=== PATIENT | female | born 1965 | race African-American/Black ===

== ENCOUNTER 2024-07-25 05:21 | Inpatient (IN) | payer OTHER ==
[~2024-07-25] VITALS: Ht 157.5 cm; Wt 78.0 kg
[2024-07-25] MEDS ORDERED: HYDRALAZINE 20MG/ML VIAL IV ONE (05:45)
[2024-07-25 06:08] LABS: BASOPHILS % 0.7 % (0.0-2.0); EOSINOPHILS % 7.7 % (0.0-5.0); HEMATOCRIT. 46.2 % (36.0-48.0); HEMOGLOBIN. 15.3 g/dL (12.0-16.0); LYMPHOCYTES % 21.4 % (20.0-50.0); MEAN CORPUSCULAR HEMOGLOBIN 29.1 pg (28.0-32.0); MEAN CORPUSCULAR HGB CONC 33.1 g/dL (31.0-37.0); MEAN CORPUSCULAR VOLUME 87.8 fL (81.0-99.0); MEAN PLATELET VOLUME 8.2 fl (7.4-10.4); MONOCYTES % 6.3 % (2.0-8.0); NEUTROPHILS % 63.9 % (40.0-76.0); PLATELET 264 x1000/uL (130-400); RED BLOOD CELL COUNT 5.26 mill/uL (4.2-5.4); RED CELL DISTRIBUTION WIDTH 14.2 % (11.6-14.6); WHITE BLOOD COUNT 13.4 x1000/uL (4.5-11.0)
[2024-07-25 06:15] LABS: CHLORIDE 103 mEq/L (98-107); POTASSIUM 3.1 mEq/L (3.5-5.1); SODIUM 139 mEq/L (136-145)
[2024-07-25 06:16] LABS: CALCIUM 10.3 mg/dL (8.7-10.4); CARBON DIOXIDE 21 mEq/L (21-32)
[2024-07-25 06:21] LABS: GLUCOSE 222 mg/dL (70-105); UREA NITROGEN BLOOD 15 mg/dL (9-23)
[2024-07-25] MEDS: HYDRALAZINE 20MG/ML VIAL IV NR (06:25)
[2024-07-25 07:45] LABS: TROPONIN I HIGH SENSITIVITY 4 ng/L (3.0-34)
[2024-07-25] MEDS ORDERED: ONDANSETRON HCL 4MG/2ML INJ IV PRN (08:45)
[2024-07-25] MEDS: SODIUM CHLORIDE 0.45% 1,000 ML IV SCH (08:45)
[2024-07-25] MEDS ORDERED: ACETAMINOPHEN 325MG TABLET PO PRN (08:45)
[2024-07-25] MEDS ORDERED: MAGNESIUM/ALUMINUM HYDROXIDE/SIMETHICONE 30ML UDC PO PRN (08:45)
[2024-07-25] MEDS ORDERED: IPRATROPIUM/ALBUTEROL 0.5-3(2.5)MG/3ML NEB HHN PRN (08:45)
[2024-07-25] MEDS ORDERED: DOCUSATE SODIUM 100MG CAPSULE PO PRN (08:45)
[2024-07-25] MEDS ORDERED: DEXTROSE 50% WATER 50ML SYRINGE IV PRN (08:45)
[2024-07-25] MEDS: SODIUM CHLORIDE 0.9% 1,000 ML IV ONE (08:56)
[2024-07-25] MEDS: BLOOD SUGAR DIAGNOSTIC STRIP TEST SCH (09:00)
[2024-07-25 09:44] LABS: PHOSPHORUS 3.2 mg/dL (2.5-4.9)
[2024-07-25 09:59] VITALS: PULSE 128; RESP 22
[2024-07-25] MEDS: IPRATROPIUM BROMIDE (0.02%) 0.5MG/2.5ML NEB HHN SCH (09:59)
[2024-07-25 10:40] LABS: LACTIC ACID 2.8 mmol/L (0.4-2.0)
[2024-07-25] MEDS: INSULIN LISPRO 100 UNITS/ML SUBCUT SCH (11:07)
[2024-07-25] MEDS: ENOXAPARIN 40MG/0.4ML SYR SUBCUT SCH (11:08)
[2024-07-25] MEDS: METHYLPREDNISOLONE SOD SUCC 40MG/ML (ACT-O-VIAL) IV SCH (11:09)
[2024-07-25] MEDS: ASCORBIC ACID 500 MG TABLET PO SCH (11:09)
[2024-07-25] MEDS: ZINC SULFATE 220 MG ( 50 ) CAPSULE PO SCH (11:09)
[2024-07-25] MEDS: HYDROCHLOROTHIAZIDE 25MG TABLET PO SCH (11:09)
[2024-07-25] MEDS: AZITHROMYCIN 500MG/250ML 250 ML IV SCH (11:10)
[2024-07-25] MEDS: POTASSIUM CHLORIDE 20MEQ TABLET SR PO NR (11:10)
[2024-07-25] MEDS: LOSARTAN 50 MG TABLET PO SCH (11:10)
[2024-07-25] MEDS: CEFTRIAXONE 1GM/50ML 50 ML IV SCH (11:10)
[2024-07-25 11:48] LABS: POTASSIUM 3.4 mEq/L (3.5-5.1)
[2024-07-25 14:55] VITALS: PULSE 125; RESP 20
[2024-07-25] MEDS: ACETYLCYSTEINE 200MG/ML 20% VIAL 4ML INH SCH (14:55)
[2024-07-25 16:47] LABS: CREATINE KINASE MB FRACTION 1.4 ng/mL (0.5-3.6)
[2024-07-25] MEDS ORDERED: MAGNESIUM 2 G PREMIX 50 ML IV NR (18:30)
[2024-07-25] MEDS: MONTELUKAST SODIUM 10MG TABLET PO SCH (18:43)
[2024-07-25 21:30] VITALS: BP 171/71; PULSE 109; RESP 19; TEMP 37.6412
[2024-07-25] MEDS: ATORVASTATIN CALCIUM 40MG TABLET PO SCH (21:55)
[2024-07-25] MEDS: DILTIAZEM HCL 60MG TABLET PO SCH (21:56)
[2024-07-25] MEDS: FAMOTIDINE 20MG TABLET PO SCH (21:56)
[2024-07-25] MEDS: HYDRALAZINE 20MG/ML VIAL IV PRN (21:57)
[2024-07-25] MEDS: MAGNESIUM 2 G PREMIX 50 ML IV NR (21:59)
[2024-07-26] VITALS (7 sets, daily range): BP systolic 126–162; BP diastolic 56–88; PULSE 92–123; RESP 18–20; TEMP 36.3918–36.78072; O2SAT 96–100
[2024-07-26 00:09] LABS: CREATINE KINASE MB FRACTION 1.4 ng/mL (0.5-3.6)
[2024-07-26] MEDS ORDERED: HYDR12.54 MT (00:38)
[2024-07-26] MEDS ORDERED: LOSA25TA26 MT (00:38)
[2024-07-26] MEDS ORDERED: LIP40 PO (00:38)
[2024-07-26 06:51] LABS: CARBON DIOXIDE 23 mEq/L (21-32); CHLORIDE 103 mEq/L (98-107); POTASSIUM 4.2 mEq/L (3.5-5.1); SODIUM 136 mEq/L (136-145)
[2024-07-26 06:52] LABS: BASOPHILS % 0.2 % (0.0-2.0); CALCIUM 10.4 mg/dL (8.7-10.4); DIFFERENTIAL COMMENT 0; EOSINOPHILS % 0.1 % (0.0-5.0); HEMATOCRIT. 46.4 % (36.0-48.0); HEMOGLOBIN. 14.9 g/dL (12.0-16.0); LYMPHOCYTES % 9.6 % (20.0-50.0); MEAN CORPUSCULAR VOLUME 87.3 fL (81.0-99.0); MEAN PLATELET VOLUME 8.9 fl (7.4-10.4); NEUTROPHILS % 84.1 % (40.0-76.0); PLATELET 293 x1000/uL (130-400); RED BLOOD CELL COUNT 5.32 mill/uL (4.2-5.4); RED CELL DISTRIBUTION WIDTH 14.8 % (11.6-14.6); WHITE BLOOD COUNT 13.8 x1000/uL (4.5-11.0)
[2024-07-26 06:54] LABS: TRIGLYCERIDE 49 mg/dL (0-150)
[2024-07-26 06:57] LABS: CREATININE 0.9 mg/dL (0.6-1.0); GLUCOSE 163 mg/dL (70-105); UREA NITROGEN BLOOD 11 mg/dL (9-23)
[2024-07-26 06:58] LABS: ALANINE AMINOTRANSFERASE 19 IU/L (10-49); ALBUMIN 4.4 g/dL (3.2-4.8); ASPARTATE AMINOTRANSFERASE 20 IU/L (<34); LDL CHOLESTEROL 93 mg/dL (5-100)
[2024-07-26 06:59] LABS: BILIRUBIN DIRECT 0.3 mg/dL (<=3.0); BILIRUBIN TOTAL 1.2 mg/dL (0.1-1.0); CHOLESTEROL 167 mg/dL (<200); HDL CHOLESTEROL 60 mg/dL (>65); PROTEIN TOTAL 7.4 g/dL (6.0-8.3); T4 FREE 1.62 ng/dL (0.89-1.76); THYROID STIMULATING HORMONE 0.26 uIU/mL (0.55-4.78)
[2024-07-26] MEDS ORDERED: FLUT12AE7 INH (13:02)
[2024-07-26] MEDS ORDERED: ATROV INH (13:04)
== END 2024-07-26 14:58 | disposition home or self-care (01) | DRG 202 ==
LOC: ER 05:21 → 5WST 07:59 → EDBEDREQ 08:03 → EDBEDREQTM 08:03 → 8WST 19:24
PROVIDERS: ADMIT Hospitalist; ATTEND Hospitalist
DX: J45.901 Unspecified asthma with (acute) exacerbation (principal); R65.10 Systemic inflammatory response syndrome (SIRS) of non-infectious origin without acute organ dysfunction; E11.9 Type 2 diabetes mellitus without complications; E78.00 Pure hypercholesterolemia, unspecified; I10 Essential (primary) hypertension; J06.9 Acute upper respiratory infection, unspecified; E87.6 Hypokalemia; T48.6X5A Adverse effect of antiasthmatics, initial encounter; T38.0X5A Adverse effect of glucocorticoids and synthetic analogues, initial encounter; Y92.89 Other specified places as the place of occurrence of the external cause; Z98.82 Breast implant status; Z88.8 Allergy status to other drugs, medicaments and biological substances
CPT/HCPCS: 36415; 71045; 80048; 80061; 80076; 82550; 82553; 82962; 83036; 83605; 83735; 83880; 84100; 84132; 84145; 84439; 84443; 84484; 85025; 93005; 93970; 94640; 99285; J0360; J0456; J0696; J1650; J1815; J2920; J3475; J7030; J7608